=== PATIENT | female | born 1960 | race Caucasian/White ===

== ENCOUNTER → 2016-10-03 | Outpatient (CLI) | payer MEDICARE ==
--- NOTE | 2016-10-03 13:23 | MR ---
EXAMINATION TYPE: MR brain wo/w con DATE OF EXAM: 10/03/2016 COMPARISON: NONE HISTORY: MS TECHNIQUE: Multiplanar, multisequence images of the brain and brainstem is performed without and with IV contras t, utilizing 10 mL intravenous MultiHance gadolinium contrast is administered intravenously. Demyeli nating disease protocol with additional Sagittal Flair sequence performed. FINDINGS: T2 Lesions Present : Yes Approximate Number of Lesions: Greater than 20 Locations Identified : Periventricular Size of Reference Lesion(s): 1. 1.4 cm x 1.3 cm x 1.1 cm on axial image 20 and sagittal image 25 2 0.5 cm x 0.6 cm x 0.3 cm on axial image 18 and sagittal image 28 Enhancing Lesion(s) Present: No T1 Hypointense Lesion(s) Present: No Change from Prior: No prior Midline structures are unremarkable. There is a normal craniocervical junction. Echoplanar diffusion imaging is normal. There are normal vascular flow voids. There is mild ethmoidal sinus mucosal disease. The orbits appear normal. There is no evidence of a CP angle mass lesion There is no mass effect, midline shift or intracranial blood. Following intravenous administration of gadolinium, no abnormal enhancement is seen. IMPRESSION: 1. No acute intracranial abnormality. 2. FLAIR lesions as described, compatible with demyelination. These are, however nonspecific.
== END | disposition home or self-care (01) ==
LOC: RADMRIMAIN 12:15
PROVIDERS: ATTEND Family Medicine
DX: G37.9 Demyelinating disease of central nervous system, unspecified (principal)
CPT/HCPCS: 70553; A9577

== ENCOUNTER → 2017-05-27 | Outpatient (CLI) | payer MEDICARE ==
--- NOTE | 2017-05-28 08:52 | CT ---
EXAMINATION TYPE: CT ChestAbdPelvis w con DATE OF EXAM: 05/27/2017 COMPARISON: NONE HISTORY: Anal cancer with re-diagnosis of skin cancer per patient history. CT DLP: 440.0 mGycm. Automated Exposure Control for Dose Reduction was Utilized. CONTRAST: CT scan of the thorax, abdomen and pelvis is performed with IV Contrast, patient injected with 100 mL of Omnipaque 300. FINDINGS: LUNGS: Mild centrilobular emphysematous changes are seen at the lung apices. No focal consolidation i s seen. At least 6 subcentimeter right-sided pulmonary nodules are seen with the largest measuring 3. 8 mm within the right upper lobe on series 4 image 29 and series 9 image 22. There are at least 4 lef t-sided subcentimeter solid pulmonary nodules with the largest measuring 2.7 cm and the left lower lo be on series 4 image 47. Findings are superimposed upon mild centrilobular emphysematous change. The re is no pleural effusion or pneumothorax seen. The tracheobronchial tree is patent. MEDIASTINUM: There are no greater than 1 cm hilar or mediastinal lymph nodes. No pericardial effusi on is seen. Right-sided Mediport terminates in the superior vena cava/right atrial junction. LIVER/GB: Multiple arterial enhancing highly suspicious hepatic lesions are seen with confluent areas in the left hepatic lobe measuring up to 1.4 x 2.7 cm and 1.8 x 1.5 cm on series 3 image 54. Additio nal left hepatic lobe lesion measures 1.7 x 2.5 cm on series 3 image 59 and 2.0 x 2.7 cm on series 3 image 61 as well as confluent area along the fissure for the falciform ligament that elongates and me asures up to 4.7 x 1.5 cm on image 66 and extends along the subcapsular left hepatic lobe on series 3 image 70 measuring 1.3 x 2.7 cm. Additional smaller left hepatic lobe lesions (at least 7 in number) are also seen. Within the right hepatic lobe the largest lesions measure 2.4 x 2.0 cm on image 54 an d 2.1 x 2.1 cm on image 78 as well as 3.1 x 3.0 cm on image 85 with at least 2 additional smaller rig ht hepatic lobe lesions. Gallbladder is unremarkable. No intrahepatic biliary ductal dilatation. PANCREAS: No significant abnormality is seen. Pancreatic duct is mildly prominent but nonenlarged. Co mmon bile duct is also upper limits of normal. SPLEEN: No significant abnormality is seen. ADRENALS: The adrenal glands are enlarged, left greater than right, without focal nodularity that may reflect adrenal gland hyperplasia although they are compacted by paucity of intra-abdominal fat. KIDNEYS: Bilateral extrarenal pelvises sees are seen. 2 small to accurately characterize right cortic ally-based 5 mm hypoattenuating lesion is noted. Remainder the kidneys enhance symmetrically.. BOWEL: The patient's known anal carcinoma is not readily visualized. Circumferential thickening of th e rectum likely relates to incomplete distention. There is no proximal obstruction. No focal abnormal ity is seen of the bowel. Moderate amount retained colonic stool is noted. GENITAL ORGANS: No gross abnormality seen. LYMPH NODES: Evaluation of adenopathy is extremely limited given the paucity of intra-abdominal fat a nd opposing loops of small bowel, however adenopathy in the romeo hepatis is suspected with a probabl e 9 mm short axis lymph node on series 3 image 64 and 1.3 cm probable lymph node on series 3 image 65 . 7 mm short axis periaortic lymph node in the retroperitoneum is seen on image 77. OSSEOUS STRUCTURES: Very mild multilevel degenerative changes of the spine are seen with no suspiciou s osseous lesions. OTHER: Mild calcific atheromatous changes are seen of the abdominal aorta and its branches. Abdominal aorta is of normal course and caliber. IMPRESSION: 1. The patient's known primary anal carcinoma is not definitely identified, however the patient state s this diagnosis was changed to skin cancer. Circumferential rectal thickening is likely related to i ncomplete distention with no proximal obstruction. 2. Multiple arterially enhancing hepatic lesions (at least 17 in number) that are highly suspicious f or metastasis with the largest measuring up to 4.7 cm in long axis. Percutaneous core needle biopsy c ould be performed for tissue diagnosis if needed. 3. Bilateral subcentimeter pulmonary nodules (at least 6 on the right and 4 on the left) measuring on ly up to 3.8 mm. These are indeterminant, however considering the hepatic lesions metastasis is possi ble. These are too small for PET CT or percutaneous biopsy and surveillance is recommended. 4. Paucity of intra-abdominal fat and numerous opposing loops of small bowel make evaluation of adeno xena difficult, however there is high suspicion for periportal adenopathy adjacent to the numerous h epatic lesions measuring up to 1.3 cm in short axis. 5. No suspicious osseous lesions.
== END | disposition home or self-care (01) ==
LOC: RADPROMAIN 14:04
PROVIDERS: ATTEND Internal Medicine Hematology & Oncology
DX: C21.0 Malignant neoplasm of anus, unspecified (principal); K76.89 Other specified diseases of liver; R91.8 Other nonspecific abnormal finding of lung field
CPT/HCPCS: 71260; 74177; Q9967; J1642

== ENCOUNTER → 2017-08-21 | Outpatient (CLI) | payer MEDICARE ==
[2017-08-21 11:32] LABS: Blood Urea Nitrogen 15 mg/dL (7-17)
--- NOTE | 2017-08-21 14:34 | CT ---
"EXAMINATION TYPE: CT ChestAbdPelvis w con DATE OF EXAM: 08/21/2017 COMPARISON: 05/27/2017 HISTORY: Follow up to rectal CA CT DLP: 431.2 mGycm. Automated Exposure Control for Dose Reduction was Utilized. CONTRAST: CT scan of the thorax, abdomen and pelvis is performed with IV Contrast, patient injected with 100 mL of Isovue 300. FINDINGS: LUNGS: There is redemonstration of mild centrilobular emphysematous changes most pronounced at the grupo ng apices. No new focal consolidation is seen. The 4 mm pulmonary nodule within the right lateral upper lobe on series 4 image 30 appears better see n on today's examination but stable in size. This is the largest nodule on the right. At least 3 add itional subcentimeter pulmonary nodules are similar to the prior. Given small size of these nodules a nd slice selection some nodules on the prior are not seen on today's examination, particularly on the left. Left pulmonary nodules that are seen are also stable in size with the largest subcentimeter no dule measuring 3 mm in the lingula on image 39. No new pulmonary nodules are seen bilaterally. MEDIASTINUM: There is a right Mediport redemonstrated. There are no greater than 1 cm hilar or medias tinal lymph nodes. No pericardial effusion is seen. LIVER/GB: The multiple known arterially enhancing hepatic lesions appear to have all progressed in th e interim in size. The previously seen largest mass measured 2.7 x 3.4 cm near the falciform ligament and no measures at least 3.9 x 4.8 cm extending to the falciform ligament. Involvement of the left h epatic lobe is also more diffuse. Another left hepatic lobe lesion previously identified measuring 2. 5 x 1.7 cm now measures at least 4.3 x 3.0 cm. Additionally a smaller lesion previously measuring 1.4 x 2.7 cm now measures 4.8 x 3.0 cm on series 3 image 57. Within the right hepatic lobe the lesion pr eviously measuring 2.0 x 2.3 cm on image 59 now measures 3.0 x 3.6 cm. Eccentric clot lesion on image 64 previously measured 1.2 cm and now measures 2.4 x 2.0 cm. Numerous other lesions are seen within the liver. Another large lesion measures 2.7 x 2.4 cm on image 78 and 82 and previously measured 2.1 x 2.0 cm. PANCREAS: Again the pancreatic duct and common bile duct are prominent, unchanged from the prior with no discrete mass seen within the pancreas. SPLEEN: No significant abnormality is seen. ADRENALS: There is again symmetric enlargement of the adrenal glands without focal measurable nodule. They maintain their adreniform shape and likely relate to adrenal gland hyperplasia. KIDNEYS: Bilateral extrarenal pelvises sees are redemonstrated. Too small to accurately characterize right cortical renal cyst appears stable. Kidneys enhance symmetrically without hydronephrosis. BOWEL: Again there is soft tissue thickening at the anal verge and circumferential distal rectal muc osal thickening without identifiable mass. Bowel is nondilated. No evidence of obstruction. Moderate amount retained colonic stool is again seen. GENITAL ORGANS: No gross abnormality seen. LYMPH NODES: Again there is suspected periportal adenopathy with soft tissue density measuring approx imately 1.3 cm, similar to the prior. OSSEOUS STRUCTURES: No suspicious osseous lesion. Mild degenerative changes of the spine. OTHER: Mild calcific atheromatous changes are seen of the abdominal aorta and its branches. Abdominal aorta is ectatic and of normal course and caliber. IMPRESSION: 1. Progression of metastatic disease within the liver. Interval enlargement of the numerous hepatic m etastases with the largest previously measuring 2.7 x 3.4 cm and currently measuring 3.9 x 4.8 cm. 2. Again there is anal verge skin thickening and circumferential rectal thickening with no obstructin g mass identified. 3. Overall stable size of the pulmonary nodules although the small size slightly limited evaluation d ue to slice selection. A Yellow level critical message alert has been initiated for Daly Garrett MD via the [employer] 36 0 | Critical Results System on 08/21/2017 2:32 PM. This message alert has been sent to Daly Garrett MD via the preferences provided by the clinician for the receipt of Radiology Critical Findings. [facility] ID [id number]."
== END | disposition home or self-care (01) ==
LOC: RADPROMAIN 10:39
PROVIDERS: ATTEND Internal Medicine Hematology & Oncology
DX: C21.0 Malignant neoplasm of anus, unspecified (principal); C78.7 Secondary malignant neoplasm of liver and intrahepatic bile duct; K62.89 Other specified diseases of anus and rectum; R91.8 Other nonspecific abnormal finding of lung field; R23.4 Changes in skin texture
CPT/HCPCS: 82565; 84520; 71260; 74177; 36415; Q9967

== ENCOUNTER → 2017-10-30 | Outpatient (CLI) | payer MEDICARE ==
[2017-10-30 12:18] LABS: Blood Urea Nitrogen 14 mg/dL (7-17)
--- NOTE | 2017-10-30 15:03 | CT ---
EXAMINATION TYPE: CT ChestAbdPelvis w con DATE OF EXAM: 10/30/2017 COMPARISON: 08/21/2017 and 05/27/2017 HISTORY: Follow up rectal Cancer CT DLP: 428.2 mGycm. Automated Exposure Control for Dose Reduction was Utilized. CONTRAST: CT scan of the thorax, abdomen and pelvis is performed with IV Contrast, patient injected with 100 mL of Isovue 300. FINDINGS: LUNGS: There is decrease in size the previously seen 4 mm right upper lobe peripheral pulmonary nodul e now measuring 2 mm on series 4 image 28. The previously seen 3 mm lingular nodule is no longer pres ent. There is a similar appearing 2 mm right lower lobe pulmonary nodule on series 4 image 44. Centrilobular emphysematous changes are again mild at the lung apices. Lungs are grossly clear with n o new focal consolidation identified. There is no pleural effusion or pneumothorax seen. The trach eobronchial tree is patent. MEDIASTINUM: Right-sided Mediport is again seen. There are no greater than 1 cm hilar or mediastinal lymph nodes. No pericardial effusion is seen. LIVER/GB: There is redemonstration of multifocal hepatic metastasis and altered perfusion of the left hepatic lobe. When measured in a similar location when of the largest lesions in the subcapsular ant erior liver measured on series 3 image 56 is stable from the prior currently measuring approximately 4.8 x 3.1 cm and previously measuring 4.8 x 3.0 cm on the prior exam of 08/21/2017. Multiple left hepa tic lobe lesions are ill-defined given the altered left hepatic lobe perfusion and therefore a discre te right hepatic lobe is measured for comparison on series 3 image 61 previously measuring 2.4 x 2.0 cm and now measuring 2.3 x 1.9 cm, overall similar. No cholelithiasis. Gallbladder is partially contr acted. PANCREAS: Pancreatic and common bile duct prominence is unchanged without peripancreatic discrete les ion. Gallbladder is partially contracted. SPLEEN: No significant abnormality is seen. No splenomegaly. The spleen measures 12.2 cm in craniocau chris dimension. ADRENALS: There is diffuse adrenal gland thickening without focal nodule seen. This likely relates to adrenal gland hyperplasia. KIDNEYS: Bilateral extrarenal pelvises are again present along with a too small to accurately charact erize right stable cortical renal probable cyst. BOWEL: No large or small bowel dilatation. Lack of intra-abdominal fat partially limits evaluation a nd creates apposition of bowel loops. The previously seen thickening in the interim versus poorly def ined due to collapse of the distal bowel and lack of oral contrast. LYMPH NODES: Periportal adenopathy borders are poorly defined secondary to the adjacent inferior vena cava, bowel, and mesenteric congestion, however the largest node again measures approximately 1.3 cm in short axis. OSSEOUS STRUCTURES: Mild multilevel degenerative changes of the spine are present no new suspicious o sseous lesion is seen. Stable probable right acetabular roof bone edema and OTHER: Abdominal aorta is of normal course and caliber with mild calcific atheromatous changes. IMPRESSION: 1. Stable metastatic disease. Overall similar appearance of the multifocal hepatic metastasis with al tered perfusion of the left hepatic lobe although no distinct portal venous thrombosis is seen. 2. Again the anal verge skin thickening is poorly defined in the represent posttreatment change with no obstructing mass. 3. Stable size of few of the pulmonary nodules and others are not identified however they are very sm all in size and this may be due to slice selection. No new pulmonary nodules are seen.
== END | disposition home or self-care (01) ==
LOC: RADCTMAIN 11:43
PROVIDERS: ATTEND Internal Medicine Hematology & Oncology
DX: C21.0 Malignant neoplasm of anus, unspecified (principal); C78.7 Secondary malignant neoplasm of liver and intrahepatic bile duct; R91.8 Other nonspecific abnormal finding of lung field; R23.4 Changes in skin texture; Z88.0 Allergy status to penicillin; Z88.6 Allergy status to analgesic agent
CPT/HCPCS: 82565; 84520; 71260; 74177; 36415; Q9967

== ENCOUNTER → 2017-11-05 | Outpatient (CLI) | payer MEDICARE ==
[2017-11-05 11:43] LABS: Basophils % (A) 1 %; Eosinophils # (A) 0.2 k/uL (0-0.7); Eosinophils % (A) 4 %; HCT 44.9 % (34.0-46.0); HGB 14.4 gm/dL (11.4-16.0); Lymphocytes # (A) 1.5 k/uL (1.0-4.8); Lymphocytes % (A) 24 %; MCH 32.1 pg (25.0-35.0); MCV 100.2 fL (80.0-100.0); Mean Platelet Volume 7.8; Monocytes # (A) 0.4 k/uL (0-1.0); Monocytes % (A) 6 %; Neutrophils % (A) 64 %; Platelet Count 180 k/uL (150-450); RBC 4.48 m/uL (3.80-5.40); RDW 12.9 % (11.5-15.5); WBC 6.3 k/uL (3.8-10.6)
[2017-11-05 12:09] LABS: ALT 91 U/L (9-52); AST 83 U/L (14-36); Albumin 5.1 g/dL (3.5-5.0); Alkaline Phosphatase 63 U/L (38-126); Anion Gap 12 mmol/L; Blood Urea Nitrogen 14 mg/dL (7-17); Carbon Dioxide 24 mmol/L (22-30); Chloride 103 mmol/L (98-107); Cholesterol 171 mg/dL (<200); Glucose 81 mg/dL (74-99); HDL Cholesterol 51 mg/dL (40-60); LDL Cholesterol,Calculated 97 mg/dL (0-99); Potassium 4.5 mmol/L (3.5-5.1); Sodium 139 mmol/L (137-145); Total Bilirubin 0.8 mg/dL (0.2-1.3); Total Protein 9.3 g/dL (6.3-8.2); Triglycerides 115 mg/dL (<150)
[2017-11-05 12:25] LABS: T4, Free (Free Thyroxine) 1.34 ng/dL (0.78-2.19)
== END | disposition home or self-care (01) ==
LOC: LABWHC1 10:19
PROVIDERS: ATTEND Family Medicine
DX: E78.5 Hyperlipidemia, unspecified (principal); E55.9 Vitamin D deficiency, unspecified; R53.81 Other malaise; Z13.220 Encounter for screening for lipoid disorders
CPT/HCPCS: 36415; 80053; 80061; 82306; 84439; 84443; 85025

== ENCOUNTER → 2018-03-31 | Outpatient (CLI) | payer MEDICARE, OTHER ==
--- NOTE | 2018-03-31 15:56 | XR ---
EXAMINATION TYPE: XR abdomen complete w decub DATE OF EXAM: 03/31/2018 COMPARISON: NONE HISTORY: [id number] female shortness of breath and colitis TECHNIQUE: Supine, upright, and left side down lateral decubitus views of the abdomen are obtained. FINDINGS: There is no evidence for pneumoperitoneum. Some scattered moderate stool is present but with air-fluid levels in the colon. Air extends distally to the rectum. No abnormal bowel dilatation is seen. No unusual calcifications. IMPRESSION: 1. No evidence for free air or bowel obstruction. 2. Air-fluid levels or of the colon suggests generalized ileus or enteritis/colitis.
== END ==
LOC: RADXRMAIN 12:59
PROVIDERS: ATTEND Internal Medicine Hematology & Oncology
DX: C21.0 Malignant neoplasm of anus, unspecified (principal); C53.9 Malignant neoplasm of cervix uteri, unspecified; C78.7 Secondary malignant neoplasm of liver and intrahepatic bile duct; H93.19 Tinnitus, unspecified ear
CPT/HCPCS: 74021

== ENCOUNTER 2018-07-14 13:22 | Day surgery (SDC) | payer MEDICARE ==
[2018-07-14 13:59] LABS: Mean Platelet Volume 7.5; Platelet Count 252 k/uL (150-450)
[2018-07-14 14:07] LABS: Prothrombin Time 10.4 sec (9.0-12.0)
[2018-07-14 14:15] VITALS: TEMP 98.7
[2018-07-14 14:32] VITALS: RESP 14
--- NOTE | 2018-07-14 15:31 | US ---
Therapeutic paracentesis. DATE OF EXAM: 07/14/2018 CLINICAL HISTORY: Ascites The procedure was discussed with the patient. The risks, complications, benefits, and alternatives we re discussed and any questions were answered. Informed consent was obtained. The patient was placed s upine on the ultrasound table and prepped and draped in the usual sterile fashion. All elements of maximal barrier technique were utilized. Under ultrasound guidance, access into the right lower quadrant was obtained, via the paracentesis catheter system and direct ultrasound guidanc e. Approximately 4.75 liters of straw-colored fluid was removed. The patient was stable throughout the p rocedure and remained stable upon discharge from Department of Radiology. IMPRESSION: Successful therapeutic paracentesis under ultrasound guidance.
[2018-07-14 15:45] VITALS: BP 138/78; PULSE 84
== END 2018-07-14 15:45 | disposition home or self-care (01) ==
LOC: RADPROMAIN 13:22
PROVIDERS: ATTEND Internal Medicine Hematology & Oncology
DX: R18.8 Other ascites (principal)
CPT/HCPCS: 49083; 82565; 85049; 85610

== ENCOUNTER 2018-07-26 12:17 | Day surgery (SDC) | payer MEDICARE ==
[2018-07-26 12:44] VITALS: RESP 16; TEMP 97.5
[2018-07-26 13:13] LABS: Mean Platelet Volume 7.9; Platelet Count 273 k/uL (150-450)
[2018-07-26 13:20] LABS: Prothrombin Time 10.6 sec (9.0-12.0)
[2018-07-26 14:07] VITALS: PULSE 87
[2018-07-26 14:12] VITALS: BP 119/76
--- NOTE | 2018-07-26 15:09 | US ---
Therapeutic paracentesis. DATE OF EXAM: 07/26/2018 CLINICAL HISTORY: Ascites The procedure was discussed with the patient. The risks, complications, benefits, and alternatives we re discussed and any questions were answered. Informed consent was obtained. The patient was placed s upine on the ultrasound table and prepped and draped in the usual sterile fashion. All elements of maximal barrier technique were utilized. Under ultrasound guidance, access into the left lower quadrant was obtained, via the paracentesis catheter system and direct ultrasound guidance . Approximately 4.9 liters of straw-colored fluid was removed. The patient was stable throughout the pr ocedure and remained stable upon discharge from Department of Radiology. IMPRESSION: Successful therapeutic paracentesis under ultrasound guidance.
== END 2018-07-26 14:29 | disposition home or self-care (01) ==
LOC: RADPROMAIN 12:17
PROVIDERS: ATTEND Internal Medicine Hematology & Oncology
DX: R18.8 Other ascites (principal); C21.0 Malignant neoplasm of anus, unspecified
CPT/HCPCS: 49083; 82565; 85049; 85610

== ENCOUNTER 2018-08-10 13:19 | Day surgery (SDC) | payer MEDICARE ==
[2018-08-10 14:09] LABS: Mean Platelet Volume 8.1; Platelet Count 228 k/uL (150-450)
[2018-08-10 14:13] VITALS: TEMP 98.8
[2018-08-10 14:14] LABS: Prothrombin Time 10.6 sec (9.0-12.0)
[2018-08-10 15:48] VITALS: BP 150/83; PULSE 94; RESP 18
--- NOTE | 2018-08-10 16:12 | US ---
EXAMINATION TYPE: US paracentesis abd w/image DATE OF EXAM: 08/10/2018 COMPARISON: NONE HISTORY: Ascites. PROCEDURE: Maximal barrier technique was utilized. The skin overlying a suitable pocket of fluid was localized with ultrasound and the overlying skin was prepped and draped. Ultrasound was utilized with sterile technique. Lidocaine was used for local anesthesia and a skin alesha made with a scalpel. Catheter was advanced under direct ultrasound guidance into a suitable pocket of fluid and approximately 2.9 liter s of serous fluid were removed. Catheter was withdrawn and hemostasis achieved. There is no immedia te complication; the patient is discharged in stable condition. IMPRESSION: STATUS POST ULTRASOUND GUIDED PARACENTESIS FOR PALLIATION OF ASCITES. THIS PROCEDURE WA S PERFORMED BY THE UNDERSIGNED.
== END 2018-08-10 15:48 | disposition home or self-care (01) ==
LOC: RADPROMAIN 13:19
PROVIDERS: ATTEND Internal Medicine Hematology & Oncology
DX: R18.8 Other ascites (principal); C78.5 Secondary malignant neoplasm of large intestine and rectum
CPT/HCPCS: 49083; 85049; 85610

== ENCOUNTER 2018-08-17 13:16 | Day surgery (SDC) | payer MEDICARE ==
[2018-08-17 13:59] LABS: Platelet Count 283 k/uL (150-450)
[2018-08-17 14:05] LABS: Prothrombin Time 10.8 sec (9.0-12.0)
[2018-08-17 14:34] VITALS: RESP 16; TEMP 98.3
[2018-08-17 15:13] VITALS: PULSE 88
[2018-08-17 15:55] VITALS: BP 127/71
--- NOTE | 2018-08-17 16:51 | US ---
EXAMINATION TYPE: US paracentesis abd w/image DATE OF EXAM: 08/17/2018 COMPARISON: NONE HISTORY: Ascites. PROCEDURE: Maximal barrier technique was utilized. The skin overlying a suitable pocket of fluid was localized with ultrasound and the overlying skin was prepped and draped. Ultrasound was utilized with sterile technique. Lidocaine was used for local anesthesia and a skin alesha made with a scalpel. Catheter was advanced under direct ultrasound guidance into a suitable pocket of fluid and approximately 1.5 liter s of serous fluid were removed. Catheter was withdrawn and hemostasis achieved. There is no immedia te complication; the patient is discharged in stable condition. IMPRESSION: STATUS POST ULTRASOUND GUIDED PARACENTESIS FOR PALLIATION OF ASCITES. THIS PROCEDURE WA S PERFORMED BY THE UNDERSIGNED.
== END 2018-08-17 15:50 | disposition home or self-care (01) ==
LOC: RADPROMAIN 13:16
PROVIDERS: ATTEND Internal Medicine Hematology & Oncology
DX: R18.8 Other ascites (principal); C21.0 Malignant neoplasm of anus, unspecified
CPT/HCPCS: 82565; 85049; 85610; 49083; J1642

== ENCOUNTER 2018-08-24 13:01 | Day surgery (SDC) | payer MEDICARE, OTHER ==
[2018-08-24 13:49] LABS: Mean Platelet Volume 8.1; Platelet Count 244 k/uL (150-450)
[2018-08-24 13:50] VITALS: RESP 18; TEMP 98.5
[2018-08-24 14:05] LABS: INR 0.9 (<1.2)
[2018-08-24] MEDS ORDERED: LIDOCAINE-PRILOCAINE 2.5-2.5% CREAM 5 GM TUBE TOPICAL STA (14:20)
[2018-08-24 15:55] VITALS: BP 107/62; PULSE 88
--- NOTE | 2018-08-25 09:20 | US ---
EXAMINATION TYPE: US paracentesis abd w/image DATE OF EXAM: 08/24/2018 COMPARISON: NONE HISTORY: Ascites. PROCEDURE: Maximal barrier technique was utilized. The skin overlying a suitable pocket of fluid was localized with ultrasound and the overlying skin was prepped and draped. Ultrasound was utilized with sterile technique. Lidocaine was used for local anesthesia and a skin alesha made with a scalpel. Catheter was advanced under direct ultrasound guidance into a suitable pocket of fluid and approximately 1 liters of serous fluid were removed. Catheter was withdrawn and hemostasis achieved. There is no immediate complication; the patient is discharged in stable condition. IMPRESSION: STATUS POST ULTRASOUND GUIDED PARACENTESIS FOR PALLIATION OF ASCITES. THIS PROCEDURE WA S PERFORMED BY THE UNDERSIGNED.
== END 2018-08-24 15:50 | disposition home or self-care (01) ==
LOC: RADPROMAIN 13:01
PROVIDERS: ATTEND Internal Medicine Hematology & Oncology
DX: R18.8 Other ascites (principal); C21.0 Malignant neoplasm of anus, unspecified
CPT/HCPCS: 49083; 85049; 85610

== ENCOUNTER 2018-08-31 13:20 | Day surgery (SDC) | payer MEDICARE ==
[2018-08-31 14:18] VITALS: TEMP 98.1
[2018-08-31 14:32] LABS: Prothrombin Time 10.8 sec (9.0-12.0)
[2018-08-31 14:46] LABS: Mean Platelet Volume 8.5; Platelet Count 247 k/uL (150-450)
[2018-08-31 16:10] VITALS: BP 136/72; PULSE 96; RESP 14
--- NOTE | 2018-09-02 08:43 | US ---
Therapeutic paracentesis. DATE OF EXAM: 08/31/2018 CLINICAL HISTORY: Ascites The procedure was discussed with the patient. The risks, complications, benefits, and alternatives we re discussed and any questions were answered. Informed consent was obtained. The patient was placed s upine on the ultrasound table and prepped and draped in the usual sterile fashion. All elements of maximal barrier technique were utilized. Under ultrasound guidance, access into the left lower quadrant was obtained, via the paracentesis catheter system and direct ultrasound guidance . Approximately 0.8 liters of straw-colored fluid was removed. The patient was stable throughout the pr ocedure and remained stable upon discharge from Department of Radiology. IMPRESSION: Successful therapeutic paracentesis under ultrasound guidance.
== END 2018-08-31 15:25 | disposition home or self-care (01) ==
LOC: RADPROMAIN 13:20
PROVIDERS: ATTEND Internal Medicine Hematology & Oncology
DX: R18.8 Other ascites (principal); C21.0 Malignant neoplasm of anus, unspecified
CPT/HCPCS: 49083; 85049; 85610

== ENCOUNTER 2018-09-07 13:12 | Day surgery (SDC) | payer MEDICARE ==
[2018-09-07 13:52] VITALS: RESP 16; TEMP 98.4
[2018-09-07 14:39] VITALS: BP 118/71; PULSE 90
--- NOTE | 2018-09-08 09:01 | US ---
EXAMINATION TYPE: US paracentesis abd w/image DATE OF EXAM: 09/07/2018 COMPARISON: NONE HISTORY: Ascites. PROCEDURE: Maximal barrier technique was utilized. The skin overlying a suitable pocket of fluid was localized with ultrasound and the overlying skin was prepped and draped. Ultrasound was utilized with sterile technique. Lidocaine was used for local anesthesia and a skin alesha made with a scalpel. Catheter was advanced under direct ultrasound guidance into a suitable pocket of fluid and approximately .9 liters of serous fluid were removed. Catheter was withdrawn and hemostasis achieved. There is no immediat e complication; the patient is discharged in stable condition. IMPRESSION: STATUS POST ULTRASOUND GUIDED PARACENTESIS FOR PALLIATION OF ASCITES. THIS PROCEDURE WA S PERFORMED BY THE UNDERSIGNED.
== END 2018-09-07 13:15 | disposition home or self-care (01) ==
LOC: RADPROMAIN 13:12
PROVIDERS: ATTEND Internal Medicine Hematology & Oncology
DX: Z51.5 Encounter for palliative care (principal); R18.8 Other ascites; C21.0 Malignant neoplasm of anus, unspecified; C79.9 Secondary malignant neoplasm of unspecified site
CPT/HCPCS: 49083

== ENCOUNTER 2018-09-14 13:08 | Day surgery (SDC) | payer MEDICARE ==
[2018-09-14 13:41] VITALS: TEMP 98.7
[2018-09-14 13:45] LABS: Mean Platelet Volume 8.2; Platelet Count 231 k/uL (150-450)
[2018-09-14 13:52] LABS: Prothrombin Time 10.7 sec (9.0-12.0)
[2018-09-14 14:38] VITALS: BP 130/72; PULSE 94; RESP 18
--- NOTE | 2018-09-14 15:25 | US ---
Therapeutic paracentesis. DATE OF EXAM: 09/14/2018 CLINICAL HISTORY: Ascites The procedure was discussed with the patient. The risks, complications, benefits, and alternatives we re discussed and any questions were answered. Informed consent was obtained. The patient was placed s upine on the ultrasound table and prepped and draped in the usual sterile fashion. All elements of maximal barrier technique were utilized. Under ultrasound guidance, access into the left lower quadrant was obtained, via the paracentesis catheter system and direct ultrasound guidance . Approximately 0.95 liters of straw-colored fluid was removed. The patient was stable throughout the p rocedure and remained stable upon discharge from Department of Radiology. IMPRESSION: Successful therapeutic paracentesis under ultrasound guidance.
== END 2018-09-14 14:48 | disposition home or self-care (01) ==
LOC: RADPROMAIN 13:08
PROVIDERS: ATTEND Internal Medicine Hematology & Oncology
DX: R18.8 Other ascites (principal); C21.0 Malignant neoplasm of anus, unspecified
CPT/HCPCS: 85049; 85610; 49083; J1642

== ENCOUNTER 2018-09-28 12:46 | Day surgery (SDC) | payer MEDICARE ==
[2018-09-28 13:05] VITALS: TEMP 98.3
[2018-09-28 13:12] LABS: Mean Platelet Volume 7.8; Platelet Count 251 k/uL (150-450)
[2018-09-28 13:23] LABS: Prothrombin Time 10.5 sec (9.0-12.0)
[2018-09-28 13:47] VITALS: RESP 16
[2018-09-28 14:42] VITALS: BP 110/59; PULSE 81
--- NOTE | 2018-09-28 16:36 | US ---
EXAMINATION TYPE: US paracentesis abd w/image DATE OF EXAM: 09/28/2018 COMPARISON: NONE HISTORY: Ascites. PROCEDURE: Maximal barrier technique was utilized. The skin overlying a suitable pocket of fluid was localized with ultrasound and the overlying skin was prepped and draped. Ultrasound was utilized with sterile technique. Lidocaine was used for local anesthesia and a skin alesha made with a scalpel. Catheter was advanced under direct ultrasound guidance into a suitable pocket of fluid and approximately 2.2 liter s of serous fluid were removed. Catheter was withdrawn and hemostasis achieved. There is no immedia te complication; the patient is discharged in stable condition. IMPRESSION: STATUS POST ULTRASOUND GUIDED PARACENTESIS FOR PALLIATION OF ASCITES. THIS PROCEDURE WA S PERFORMED BY THE UNDERSIGNED.
== END 2018-09-28 15:00 | disposition home or self-care (01) ==
LOC: RADPROMAIN 12:46
PROVIDERS: ATTEND Internal Medicine Hematology & Oncology
DX: R18.8 Other ascites (principal); C21.0 Malignant neoplasm of anus, unspecified
CPT/HCPCS: 85049; 85610; 49083; J1642

== ENCOUNTER 2018-10-05 12:30 | Day surgery (SDC) | payer MEDICARE ==
[2018-10-05 12:38] VITALS: RESP 16; TEMP 97.6
[2018-10-05 14:26] VITALS: BP 131/70; PULSE 96
--- NOTE | 2018-10-05 15:43 | US ---
Therapeutic paracentesis. DATE OF EXAM: 10/05/2018 CLINICAL HISTORY: Ascites The procedure was discussed with the patient. The risks, complications, benefits, and alternatives we re discussed and any questions were answered. Informed consent was obtained. The patient was placed s upine on the ultrasound table and prepped and draped in the usual sterile fashion. All elements of maximal barrier technique were utilized. Under ultrasound guidance, access into the left lower quadrant was obtained, via the paracentesis catheter system and direct ultrasound guidance . Approximately 4.1 liters of straw-colored fluid was removed. The patient was stable throughout the pr ocedure and remained stable upon discharge from Department of Radiology. IMPRESSION: Successful therapeutic paracentesis under ultrasound guidance.
== END 2018-10-05 14:41 | disposition home or self-care (01) ==
LOC: RADPROMAIN 12:30
PROVIDERS: ATTEND Internal Medicine Hematology & Oncology
DX: R18.8 Other ascites (principal)
CPT/HCPCS: 49083

== ENCOUNTER 2018-10-12 13:26 | Day surgery (SDC) | payer MEDICARE ==
[2018-10-12 14:09] LABS: Mean Platelet Volume 7.9; Platelet Count 217 k/uL (150-450)
[2018-10-12 14:18] LABS: Prothrombin Time 10.5 sec (9.0-12.0)
[2018-10-12 14:50] VITALS: RESP 18; TEMP 37.5
[2018-10-12 15:53] VITALS: PULSE 84
[2018-10-12 15:54] VITALS: BP 111/60
--- NOTE | 2018-10-12 15:59 | US ---
Therapeutic paracentesis. DATE OF EXAM: 10/12/2018 CLINICAL HISTORY: Ascites The procedure was discussed with the patient. The risks, complications, benefits, and alternatives we re discussed and any questions were answered. Informed consent was obtained. The patient was placed s upine on the ultrasound table and prepped and draped in the usual sterile fashion. All elements of maximal barrier technique were utilized. Under ultrasound guidance, access into the right lower quadrant was obtained, via the paracentesis catheter system and direct ultrasound guidanc e. Approximately 3.3 liters of straw-colored fluid was removed. The patient was stable throughout the pr ocedure and remained stable upon discharge from Department of Radiology. IMPRESSION: Successful therapeutic paracentesis under ultrasound guidance.
== END 2018-10-12 16:00 | disposition home or self-care (01) ==
LOC: RADPROMAIN 13:26
PROVIDERS: ATTEND Internal Medicine Hematology & Oncology
DX: R18.8 Other ascites (principal)
CPT/HCPCS: 85049; 85610; 49083; J1642

== ENCOUNTER 2018-10-19 13:17 | Day surgery (SDC) | payer MEDICARE ==
[2018-10-19 14:14] VITALS: RESP 16; TEMP 98.6
[2018-10-19 15:13] VITALS: BP 129/71; PULSE 85
--- NOTE | 2018-10-19 16:03 | US ---
EXAMINATION TYPE: US paracentesis abd w/image DATE OF EXAM: 10/19/2018 COMPARISON: NONE HISTORY: Ascites. PROCEDURE: Maximal barrier technique was utilized. The skin overlying a suitable pocket of fluid was localized with ultrasound and the overlying skin was prepped and draped. Ultrasound was utilized with sterile technique. Lidocaine was used for local anesthesia and a skin alesha made with a scalpel. Catheter was advanced under direct ultrasound guidance into a suitable pocket of fluid and approximately 3.6 liter s of serous fluid were removed. Catheter was withdrawn and hemostasis achieved. There is no immedia te complication; the patient is discharged in stable condition. IMPRESSION: STATUS POST ULTRASOUND GUIDED PARACENTESIS FOR PALLIATION OF ASCITES. THIS PROCEDURE WA S PERFORMED BY THE UNDERSIGNED.
== END 2018-10-19 15:05 | disposition hospice, home (50) ==
LOC: RADPROMAIN 13:17
PROVIDERS: ATTEND Internal Medicine Hematology & Oncology
DX: C21.0 Malignant neoplasm of anus, unspecified (principal); R18.8 Other ascites
CPT/HCPCS: 49083

== ENCOUNTER 2018-10-26 13:06 | Day surgery (SDC) | payer MEDICARE ==
[2018-10-26 13:55] LABS: Mean Platelet Volume 8.1; Platelet Count 228 k/uL (150-450)
[2018-10-26 14:00] LABS: Prothrombin Time 11.1 sec (9.0-12.0)
[2018-10-26 14:02] VITALS: RESP 16; TEMP 98.3
[2018-10-26 15:45] VITALS: BP 111/56; PULSE 88
--- NOTE | 2018-10-26 19:14 | US ---
Therapeutic paracentesis. DATE OF EXAM: 10/26/2018 CLINICAL HISTORY: Ascites The procedure was discussed with the patient. The risks, complications, benefits, and alternatives we re discussed and any questions were answered. Informed consent was obtained. The patient was placed s upine on the ultrasound table and prepped and draped in the usual sterile fashion. All elements of maximal barrier technique were utilized. Under ultrasound guidance, access into the left lower quadrant was obtained, via the paracentesis catheter system and direct ultrasound guidance . Approximately 3 liters of straw-colored fluid was removed. The patient was stable throughout the proc edure and remained stable upon discharge from Department of Radiology. IMPRESSION: Successful therapeutic paracentesis under ultrasound guidance.
== END 2018-10-26 15:50 | disposition home or self-care (01) ==
LOC: RADPROMAIN 13:06
PROVIDERS: ATTEND Internal Medicine Hematology & Oncology
DX: R18.8 Other ascites (principal); C21.0 Malignant neoplasm of anus, unspecified
CPT/HCPCS: 85049; 85610; 49083; J1642